=== PATIENT | female | born 1940 | race Caucasian/White ===

== ENCOUNTER 2020-08-21 09:31 | Emergency (ER) | payer OTHER, BC ==
[2020-08-21] MEDS ORDERED: SODIUM CHLORIDE 0.9% 500 ML INFUS.BAG IV ONE (09:35)
[2020-08-21] MEDS ORDERED: MECLIZINE HCL 25 MG TABLET (FP) PO ONE (09:58)
[2020-08-21 10:04] VITALS: BP 162/84; PULSE 58; TEMP 97.6; BMI 24.6
[2020-08-21] MEDS ORDERED: MECLIZINE HCL 25 MG TABLET (FP) ONE (10:08)
[2020-08-21 10:09] LABS: BASO % 0.7 % (0-2.0); EOS % 1.7 % (0-4.5); HEMATOCRIT 40.7 % (32.4-45.2); HEMOGLOBIN 13.9 GM/dl (10.7-15.3); MCH 29.8 pg (25.7-33.7); MEAN CELL VOLUME 87.4 fl (80-96); MEAN PLT VOLUME 9.7 fl (7.5-11.1); MONO % 6.4 % (3.8-10.2); NEUT % 61.2 % (42.8-82.8); PLATELET COUNT 256 K/MM3 (134-434); RBC 4.66 M/mm3 (3.60-5.2); WHITE BLOOD COUNT 6.7 K/mm3 (4.0-10.8)
[2020-08-21 10:21] LABS: ALK PHOS 58 U/L (45-117); ANION GAP 9 MMOL/L (8-16); BILIRUBIN,TOTAL 0.7 mg/dl (0.2-1); CALCIUM 9.1 mg/dl (8.5-10); CHLORIDE 102 mmol/L (98-107); CO2 26 mmol/L (21-32); CREATININE 0.8 mg/dl (0.55-1.3); GLUCOSE,RANDOM 125 mg/dl (74-106); SGOT/AST 20 U/L (15-37); SGPT/ALT 18 U/L (13-61); SODIUM 137 mmol/L (136-145); TOT PROT 7.6 g/dl (6.4-8.2)
== END 2020-08-21 11:41 | disposition home or self-care (01) ==
LOC: FER 09:31
DX: R42 Dizziness and giddiness (principal)
CPT/HCPCS: 36415; 70450-TC; 80053; 82550; 84484; 85025; 93005; 99285-25

== ENCOUNTER 2021-02-07 06:09 | Day surgery (SDC) | payer OTHER, BC ==
[2021-02-06 14:24] VITALS: BMI 26.6
[2021-02-07] MEDS: PHENYLEPHRINE 2.5% OPHTH SOLN 15 ML BOTTLE ONE ×3 (06:30→06:40)
[2021-02-07] MEDS: CIPROFLOXACIN 0.3% EYE DROPS 5 ML BOTTLE ONE ×3 (06:30→06:40)
[2021-02-07] MEDS: TROPICAMIDE 1% OPHTH SOLN 15 ML BOTTLE ONE ×3 (06:30→06:40)
[2021-02-07] MEDS: CYCLOPENTOLATE 2% OPHTH SOLN 2 ML BOTTLE ONE ×3 (06:30→06:40)
[2021-02-07] MEDS ORDERED: EPINEPHrine/PF 1 MG/1 ML (1:1,000) AMPULE ONE (07:06)
[2021-02-07] MEDS ORDERED: BSS (NA/CA/MG/K) BALANCED SALT SOLUTION OPHTH SOLN 15 ML BOTTLE ONE (07:07)
[2021-02-07] MEDS ORDERED: LIDOCAINE 1% P/F 10 MG/ML VIAL ONE (07:07)
[2021-02-07] MEDS ORDERED: TETRACAINE 0.5% OPHTH SOLN 2 ML BOTTLE ONE (07:07)
[2021-02-07] MEDS ORDERED: CARBACHOL 0.01% INTRA-OCULAR 1.5 ML VIAL ONE (07:08)
[2021-02-07] MEDS ORDERED: NEO/POLYMYX B SULF/DEXAMETH OPHTHALMIC 5ML BOTTLE ONE (07:08)
[2021-02-07] MEDS ORDERED: MIDAZOLAM HCL 2 MG/2 ML SINGLE DOSE VIAL ONE (07:40)
[2021-02-07 08:09] VITALS: TEMP 97.8
[2021-02-07 08:36] VITALS: BP 118/67; PULSE 66
== END 2021-02-07 08:38 | disposition home or self-care (01) ==
LOC: FASU 06:09
PROVIDERS: ATTEND Ophthalmology
PROC: 08RJ3JZ Replacement of Right Lens with Synthetic Substitute, Percutaneous Approach (ICD-10-PCS; principal; 2021-02-07 07:46)
DX: H26.8 Other specified cataract (principal)

== ENCOUNTER 2021-11-02 10:27 | Emergency (ER) | payer OTHER, BC ==
[2021-11-02 10:39] VITALS: RESP 20; TEMP 98.2; BMI 25.0
[2021-11-02] MEDS ORDERED: ASPIRIN 81 MG CHEWABLE TABLETS PO ONE (11:12)
[2021-11-02] MEDS ORDERED: ASPIRIN 81 MG CHEWABLE TABLETS ONE (11:24)
[2021-11-02 11:39] LABS: INR 1.13 (0.83-1.09)
[2021-11-02 11:42] LABS: ACTIVATED PTT 29.1 SECONDS (25.2-36.5); HEMATOCRIT 35.4 % (32.4-45.2); HEMOGLOBIN 12.6 G/dL (10.7-15.3); MCH 30.7 pg (25.7-33.7); MCHC 35.6 g/dl (32.0-36.0); MEAN CELL VOLUME 86.1 fl (80-96); MEAN PLT VOLUME 9.2 fl (7.5-11.1); PLATELET COUNT 262.7 10^3/uL (134-434); RBC 4.11 10^6/uL (3.60-5.2); RDW 14.1 % (11.6-15.6); WHITE BLOOD COUNT 7.8 10^3/uL (4.0-10.8)
[2021-11-02 11:46] LABS: ALBUMIN 3.6 g/dl (3.4-5.0); ALK PHOS 44 U/L (45-117); ANION GAP 6 MMOL/L (8-16); BILIRUBIN,TOTAL 0.6 mg/dl (0.2-1); CALCIUM 9.2 mg/dl (8.5-10); CHLORIDE 108 mmol/L (98-107); CO2 25 mmol/L (21-32); CREATININE 0.7 mg/dl (0.55-1.3); GLUCOSE,RANDOM 135 mg/dl (74-106); SGOT/AST 23 U/L (15-37); SGPT/ALT 21 U/L (13-61); SODIUM 139 mmol/L (136-145)
[2021-11-02 12:30] LABS: PLATELET ESTIMATE ADEQUATE
[2021-11-02 13:38] VITALS: BP 121/72; PULSE 62
== END 2021-11-02 15:33 | disposition home or self-care (01) ==
LOC: FER 10:27
DX: R07.9 Chest pain, unspecified (principal)
CPT/HCPCS: 36415; 71045-TC-FY; 71275-TC; 80053; 84484; 85025; 85610; 85730; 93005; 93308; 93970-TC; 99285-25; C9803-CS; U0003; U0005

== ENCOUNTER 2024-06-20 11:25 | Emergency (ER) | payer OTHER, BC ==
[2024-06-20 11:38] VITALS: TEMP 98.1; BMI 24.8
[2024-06-20 12:37] LABS: ABSOLUTE IMMATURE GRANULOCYTES 0.04 x10^3/uL (0.0-0.031); BASOPHILS # 0.05 x10^3/uL (0.01-0.08); EOSINOPHIL % 0.7 % (0.7-5.8); EOSINOPHILS # 0.06 x10^3/uL (0.04-0.36); HEMATOCRIT 41.3 % (34.1-44.9); HEMOGLOBIN 13.7 g/dL (11.2-15.7); MCHC 33.2 g/dl (32.2-35.5); MEAN CELL VOLUME 87.1 fl (79.4-94.8); MEAN PLT VOLUME 11.2 fl (9.4-12.3); MONOCYTE # 0.53 x10^3/uL (0.24-0.86); MONOCYTE % 6.2 % (4.7-12.5); PLATELET COUNT 279 x10^3/uL (182-369); RDW 12.2 % (12.5-17.0)
[2024-06-20 12:48] LABS: ALBUMIN 4.3 g/dl (3.4-5.0); ALK PHOS 53 U/L (45-117); ANION GAP 10 mmol/L (4-13); BILIRUBIN,TOTAL 0.6 mg/dl (0.2-1); CALCIUM 9.5 mg/dl (8.5-10.1); CHLORIDE 106 mmol/L (98-107); CO2 25 mmol/L (21-32); CREATININE 0.8 mg/dl (0.6-1.3); GLUCOSE,RANDOM 108 mg/dl (74-106); SGOT/AST 14 U/L (15-37); SGPT/ALT 12 U/L (7-52); SODIUM 141 mmol/L (136-145); TOT PROT 7.4 g/dl (6.4-8.2)
[2024-06-20 13:07] VITALS: BP 111/60; PULSE 55; RESP 16
== END 2024-06-20 13:35 | disposition home or self-care (01) ==
LOC: FER 11:25
DX: R55 Syncope and collapse (principal)
CPT/HCPCS: 36415; 70450-TC; 80053; 84484; 85025; 93005; 99285-25